=== PATIENT | male | born 1980 | race Caucasian/White ===

== ENCOUNTER 2017-01-12 08:51 | Emergency (ER) | payer MEDICAID, OTHER ==
[~2017-01-12] VITALS: Ht 170.2 cm; Wt 72.7 kg
[2017-01-12 08:55] VITALS: BP 123/87; PULSE 65; RESP 16; O2SAT 98
--- NOTE | 2017-01-12 09:09 | ED.REPORT ---
HPI-Neurologic Deficit Date of Service Jan 12, 2017 ED Provider: Dr. Jett The pt is a 36 y/o male with a hx of anxiety who presents to the ED complaining of left sided facial numbness, onset one week ago after he fell and hit his head. Associated sx include left sided facial droop, left leg numbness, left arm numbness, intermittent blurry vision, lack of appetite, and headache. He could not move his left arm and leg initially but that has gradually improved, along with his headache. He denies hearing loss, vomiting, diarrhea, chest pain , shortness of breath, abdominal pain, fever, and neck pain. Nursing Notes Stated Complaint: FACIAL NUMBNESS,POSSIBLE STROKE SYMPTOMS Chief Complaint: Neuro Symptoms/ Deficits Nursing Notes Reviewed: Yes Allergies: Coded Allergies: Penicillins (Verified Allergy, Severe, hives, 01/12/17) Sulfa (Sulfonamide Antibiotics) (Verified Allergy, Severe, hives, 01/12/17) Scheduled Prednisone (PredniSONE) 20 Mg Tablet 60 MG PO DAILY Valacyclovir (Valacyclovir) 1,000 Mg Tablet 1,000 MG PO TID General Time Seen by Provider: 09:14 Chief Complaint Other (left sided facial numbness) Hx Obtained From: Patient Arrived By: Walk-in Sudden in Onset?: Yes Onset Occurred: 1 week ago Symptom Duration: Since onset Progression Since Onset: Gradually improving Severity: Current: No pain currently Severity: Maximum: No pain Recent Healthcare: No recent doctor visit Similar Sx Previous: No Risk Factors NIH Stroke Scale Level of Consciousness: Alert and responsive (0) Ask Month & Age: Both questions right (0) Open/Close Eyes/Hand Addressograph Operator: Performs both tasks (0) Horizontal EO Movements: None (0) Visual Casillas: No visual loss (0) Facial Palsy: Minor paralysis (1) Right Arm Motor Drift (10s): No drift 10 sec (0) Left Arm Motor Drift (10s): No drift 10 sec (0) Right Leg Motor Drift (5s): No drift 5 sec (0) Left Leg Motor Drift (5s): No drift 5 sec (0) Limb Ataxia FNF/Heel-Sanchez: No ataxia (0) Sensation (Arms/Legs/Face): P-prick dull but felt (1) Language Aphasia: No aphasia, normal (0) Dysarthria: Slurring intelligible (1) Extinction/Inattention: No exctinct/inattent (0) NIHSS Score: 3 Time NIHSS Performed: 09:21 Date NIHSS Performed: Jan 12, 2017 Past Medical History Past Medical History Heroin use Anxiety Smoking History Current Every Day Smoker Social History smokes heroin (used IV heroin 4 years ago) Alcohol Use: "Social" Ambulatory Status Independent Review of Systems Reports: lack of appetite Constitutional: Denies: Fever Eyes: Reports: Blurred bilateral (intermittent) Respiratory: Denies: Shortness of breath Cardiovascular: Denies: Chest pain GI: Denies: Abdominal pain, Diarrhea, Vomiting Musculoskeletal: Denies: Neck pain Neurologic: Reports: Headache (gradually improving), Numbness (left sided faccial numbness, left leg and left arm numbness (gradually improving)) Complete sys rev & neg: except as marked. Ears / Nose / Throat: Denies: Hearing loss bilateral Physical Exam Initial Vital Signs Vital Signs (First) Date Time Temp Pulse Resp B/P Pulse Ox O2 Delivery O2 Flow Rate FiO2 01/12/17 08:55 36.9 65 16 123/87 98 Room Air Initial VS: Reviewed Neck: Supple, Non-tender, Full range of motion Abdomen / GI: Soft, Non-tender, No guarding, No rebound, No distention Extremities: Vascular intact, Neuro intact, No swelling, No tenderness Skin: Warm, Dry, No cyanosis General/Constitutional: Awake, Alert, Cooperative Head / Eyes: Atraumatic Respiratory / Chest: Atraumatic, Breath sounds NL, Breath sounds = bilat, No respiratory distress, No rales, No rhonchi, No wheezing Cardiovascular: Heart rate NL, Regular rhythm, Heart sounds NL, No gallop, No murmurs, No rubs Neurologic: Oriented X3, No motor deficits, Memory NL, Gait NL Speech: Positive: Stuttering Cranial Nerve Deficit: Positive: 5 - facial sensation abnl, 7 - lower/ asymetric smile, 7 - upper/asymetric frown, Negative: 8 - auditory deficit Interpretation & Diagnostics PROCEDURE: MRI BRAIN WITHOUT CONTRAST ([id number]) IMPRESSION: 1. Normal MRI brain scan. No acute ischemic event. 2. Chronic right maxillary sinusitis. Dictated by: Barron Alejo M.D. on 01/12/2017 at 13:13 Approved by: Barron Alejo M.D. on 01/12/2017 at 13:16 Lab Results Interpretation Result Diagram: 01/12/17 0948 01/12/17 0948 Test 01/12/17 09:48 White Blood Count 7.5th/mm3 (3.8-10.1) Red Blood Count 5.07mil/mm3 (4.40-5.80) Hemoglobin 15.2g/dL (13.8-17.2) Hematocrit 43.1% (41.0-50.0) Mean Corpuscular Volume 85.0fL (81-100) Mean Corpuscular Hemoglobin 30.0pg (27.0-35.0) Mean Corpuscular Hemoglobin Concent 35.3% (32.0-37.0) Red Cell Distribution Width 12.2% (12.3-15.4) Platelet Count 252bil/L (150-400) Neutrophils (%) (Auto) 55.3% (40-74) Lymphocytes (%) (Auto) 26.6% (14-46) Monocytes (%) (Auto) 12.4% (4-12) Eosinophils (%) (Auto) 4.3% (0-5) Basophils (%) (Auto) 1.3% (0-3) Sodium Level 140mEq/L (134-144) Potassium Level 3.9mEq/L (3.5-5.2) Chloride Level 103mEq/L (97-108) Carbon Dioxide Level 24mmol/L (18-29) Blood Urea Nitrogen 14mg/dL (6-20) Creatinine 0.84mg/dL (0.76-1.27) Estimat Glomerular Filtration Rate 109mL/min (>59) Glucose Level 122mg/dL (60-99) Calcium Level 9.1mg/dL (8.5-10.1) Total Bilirubin 0.7mg/dL (0.0-1.2) Aspartate Amino Transf (AST/SGOT) 12U/L (0-50) Alanine Aminotransferase (ALT/SGPT) 14U/L (0-44) Alkaline Phosphatase 69U/L (25-150) Total Protein 6.9g/dL (6.4-8.4) Albumin 4.1g/dL (3.4-5.0) ECG Interpretation ECG Interpretation: Normal sinus rhythm. Rate 57. Time: 09:29 Interpreted by: ED physician CT Head Interpretation IMPRESSION: 1. Normal unenhanced CT brain scan. Dictated by: Barron Alejo M.D. on 01/12/2017 at 9:56 Approved by: Barron Alejo M.D. on 01/12/2017 at 9:58 Study: Head CT no contrast Interpretation / Wet Read by: Interpret - Radiologist Re-Eval/Medical Decision Med Decision/Clinical Course Physical exam findings are highly suspicious for Kwong's palsy however given the history of trauma and reported mild symptoms in the left arm and leg and more resource intensive workup was performed. Head CT casillas show any obvious ischemic insult or intracranial hemorrhage. MRI of the brain was performed which again shows no obvious ischemic insult or intracranial hemorrhage. Given that there is no evidence of stroke or significant brain trauma it seems most reasonable to primarily diagnose this as Kwong's palsy. Valacyclovir, prednisone, artificial tears, Lacri-Lube are prescribed for this. Additionally given the constellation of symptoms that the patient reports over the last week, it is recommended he take a baby aspirin for primary prevention. No indication that this represents an ischemic stroke, recommend close outpatient follow-up with both primary care and ophthalmology. Return and follow-up precautions given Re-Evaluation/Progress #1: Time of Eval: 10:04 Re-Evaluation/Progress Note: Rechecked pt. Discussed CT results and plan to do an MRI. The pt understands and agrees with the plan. All questions answered. Re-Evaluation/Progress #2: Time of Eval: 13:22 Re-Evaluation/Progress Note: Rechecked pt. Discussed lab results, imaging results, diagnosis and plan to discharge. Pt understands and agrees with the plan. F/U instruction and RTER warning given. All questions addressed Counseled Regarding: Diagnosis, Lab results, Need for follow-up, When/why to return to ED Discharge & Departure Impression: Primary Impression: Kwong's palsy Disposition: Home Discharge Condition All VS Reviewed: Yes Condition: Stable Patient Instructions: Kwong Palsy (ED) Additional Instructions: There is no evidence of a stroke on your MRI. Your clinical exam is most consistent with Kwong's palsy at this time. Take a baby aspirin daily until you have had further evaluation by your primary care doctor. Begin taking acyclovir and prednisone as well as using eyedrops and eye lubricant to prevent injury to your eye. You will need to follow-up with your primary care in the next few days as well as with an truck engine technician for an eye exam. Return to the ER as needed for new or worsening neurologic deficits concerning for stroke or other concerns. Referrals: Tanesha Belle MD, H Edwin MD [employer] Attestation Portions of this note were transcribed by Diana Trent. I,, personally performed the history,physical exam and medical decision-making;I reviewed and confirmed the accuracy of the information in the transcribed note. Signed by Jose Antonio Bautista. 01/12/17 copies to: Tanesha Belle MD; Juan Adams MD, Timothy S DO Jan 12, 2017 09:09 Diana Trent Jan 12, 2017 09:19
[2017-01-12 09:54] LABS: BASOPHILS % (AUTO) 1.3 % (0-3); EOSINOPHILS % (AUTO) 4.3 % (0-5); MONOCYTES % (AUTO) 12.4 % (4-12); NEUTROPHILS % (AUTO) 55.3 % (40-74); Platelet Count 252 bil/L (150-400)
--- NOTE | 2017-01-12 10:00 | DRSVH ---
PROCEDURE: CT BRAIN WITHOUT CONTRAST ([id number]) INDICATIONS: left facial numb/droop TECHNIQUE: Noncontrast 4.5 mm thick angled axial sections acquired from the foramen magnum to the vertex, with c oronal reformats. COMPARISON: CT brain 05/26/2009, 05/22/2009 FINDINGS: Image quality: Excellent. CSF spaces: Basal cisterns are patent. No extra-axial fluid collections. Ventricles are normal in size and shape. Brain: No midline shift. No intracranial masses or hemorrhage. No secondary signs of acute ischemic infarct. Briggs-white matter interface is normal. Skull and face: Calvarium and visualized facial bones are intact, without suspicious lesions. Sinuses: Visualized sinuses and mastoids are clear. IMPRESSION: 1. Normal unenhanced CT brain scan. Dictated by: Barron Alejo M.D. on 01/12/2017 at 9:56 Approved by: Barron Alejo M.D. on 01/12/2017 at 9:58
--- NOTE | 2017-01-12 12:03 | NUR ---
Evaluation completed. Please go to "Notes" then click on "Assessments and Notes" (bottom left corner of screen). Then select appropriate discipline tab on top of screen.
[2017-01-12 13:17] VITALS: BP 127/82; PULSE 67; RESP 15; O2SAT 97
--- NOTE | 2017-01-12 13:18 | DRSVH ---
PROCEDURE: MRI BRAIN WITHOUT CONTRAST ([id number]) INDICATIONS: Left face numb/droop, recent L arm/leg weak/numb TECHNIQUE: Noncontrast axial T1 spin echo, axial T2 fast spin echo, sagittal and axial FLAIR, coronal T2 fast sp in echo, axial gradient echo, axial diffusion and ADC through the brain. COMPARISON: CT brain A. FINDINGS: Image quality: Excellent. CSF Spaces: Basal cisterns are patent. No extra-axial fluid collections. Ventricles are normal in size and shape. Brain: No intracranial masses or hemorrhage. Briggs/white matter interface is normal. Brainstem appe ars normal. Diffusion-weighted images demonstrate no acute ischemic insult. No chronic ischemic ins ults. Normal intravascular flow voids are present. Skull and face: Calvarium has normal marrow signal. Orbits appear normal. Sinuses: Sinuses show a small retention cyst or polyp in the anterior floor of the right maxillary s inus, otherwise sinuses and mastoids are clear. IMPRESSION: 1. Normal MRI brain scan. No acute ischemic event. 2. Chronic right maxillary sinusitis. Dictated by: Barron Alejo M.D. on 01/12/2017 at 13:13 Approved by: Barron Alejo M.D. on 01/12/2017 at 13:16
[2017-01-12] MEDS ORDERED: PRE20 PO (13:39)
[2017-01-12] MEDS ORDERED: VALA100026 PO (13:39)
== END 2017-01-12 13:47 | disposition home or self-care (01) ==
LOC: SED 08:51
DX: G51.0 Bell's palsy (principal); F17.200 Nicotine dependence, unspecified, uncomplicated; Z88.0 Allergy status to penicillin; Z88.2 Allergy status to sulfonamides
CPT/HCPCS: 36415; 70450; 70551; 80053; 85025; 92610; 93005; 99284; G0463